=== PATIENT | male | born 1995 | race Caucasian/White ===

== ENCOUNTER 2017-03-29 17:06 | Emergency (ER) | payer OTHER ==
[2017-03-29] MEDS ORDERED: Ondansetron INJ* 2 MG/ML VIAL IV ONE (18:36)
--- NOTE | 2017-03-29 18:37 | UC ---
UC General HPI - HPI Summary HPI Summary: The patient comes in today for: 1. Vomiting: Onset: Palliative/provacative: Quality: Region: Severity: Time: Associated symptoms: Event: He got up at 8-9 AM today. As he was walking to work, he vomited once. Every 30 minutes he had vomiting at work. He tried water and Gatorade and still vomited. The vomitus had no coffee ground material. He only had bile. Diarrhea: none. Urination--only urinated once and it was very yellow. His last vomiting was 2 hours ago. He is nauseated now. * - History of Current Complaint Chief Complaint: UCAbdominalPain Stated Complaint: VOMITING,ACHES Time Seen by Provider: 03/29/17 18:30 - Allergy/Home Medications Allergies/Adverse Reactions: Allergies Allergy/AdvReac Type Severity Reaction Status Date / Time No Known Allergies Allergy Verified 03/29/17 17:32 PMH/Surg Hx/FS Hx/Imm Hx Previously Healthy: Yes Endocrine History Of: Denies: Diabetes, Thyroid Disease, Hyperthyroidism, Hypothyroidism, Dyslipidemia Cardiovascular History Of: Denies: Cardiac Disorders, Hypertension, Pacemaker/ICD, Myocardial Infarction , Congestive Heart Failure, Atrial Fibrillation, Deep Vein Thrombosis, Bleeding Disorders Respiratory History Of: Denies: COPD, Asthma, Bronchitis, Pneumonia, Pulmonary Embolism GI/ History Of: Denies: Gastroesophageal Reflux, Ulcer, Gastrointestinal Bleed, Gall Bladder Disease, Kidney Stones, Diverticulitis, Renal Disease, Urosepsis Neurological History Of: Denies: TIA, CVA, Dementia, Seizures, Migraine Psychological History Of: Denies: Anxiety, Depression, Bipolar Disorder, Schizophrenia, Post Traumatic Stress Disorder Cancer History Of: Denies: Lung Cancer, Colorectal Cancer, Breast Cancer, Prostate Cancer, Cervical Cancer Other History Of: Negative For: HIV, Hepatitis B, Hepatitis C, Anticoagulant Therapy - Surgical History Surgical History: Yes Surgery Procedure, Year, and Place: rhinoplasty at 11 - Family History Known Family History: Positive: Cardiac Disease, Diabetes - Social History Occupation: Employed Full-time Alcohol Use: Weekly Substance Use Type: None Smoking Status (MU): Former Smoker Review of Systems Constitutional: Chills - No temperature taken at home. Skin: Negative Eyes: Negative ENT: Negative Respiratory: Negative Cardiovascular: Negative Gastrointestinal: Abdominal Pain - He states that he has this worse before he vomits. It is an ache 2/10, Vomiting Genitourinary: Negative Motor: Negative Musculoskeletal: Arthralgia All Other Systems Reviewed And Are Negative: Yes Physical Exam Triage Information Reviewed: Yes Appearance: Well-Appearing, No Pain Distress, Well-Nourished Vital Signs: Initial Vital Signs Temp 98.3 F 03/29/17 17:23 Pulse 93 03/29/17 17:23 Resp 18 03/29/17 17:23 BP 154/87 03/29/17 17:23 Pulse Ox 94 03/29/17 17:23 Vital Signs Reviewed: Yes Eyes: Positive: Conjunctiva Clear. Negative: Discharge ENT: Positive: Hearing grossly normal, Other: - Mouth slightly pasty.. Negative : Pharyngeal erythema, Nasal congestion, Nasal drainage, TM bulging, TM dull, TM red, Tonsillar swelling, Tonsillar exudate Dental: Negative: Gross Decay/Caries @, Dental Fracture @ Neck: Positive: Supple, Nontender, No Lymphadenopathy. Negative: Nuchal Rigidity Respiratory: Positive: Chest non-tender, Lungs clear, No respiratory distress, No accessory muscle use. Negative: Crackles, Wheezing Cardiovascular: Positive: RRR, No Murmur Abdomen Description: Positive: No Organomegaly, Soft. Negative: Nontender - Initially, he had diffuse and inconsistent tenderness of the general abdominal exam. Musculoskeletal: Positive: Strength Intact, ROM Intact Neurological: Positive: Alert, Muscle Tone Normal Psychological: Positive: Normal Response To Family, Age Appropriate Behavior, Consolable Skin: Negative: rashes, breakdown Course/Dx - Course Course Of Treatment: Patient had 1000 ml of D5NS and Zofran 4 mg IV. He states that he feels much better and wants to go home. He feels like he now can urinate. - Differential Dx - Multi-Symptom Provider Diagnoses: viral gastroenteritis Discharge - Discharge Plan Condition: Stable Disposition: HOME Patient Education Materials: Gastroenteritis (ED) Referrals: No Primary Care Phys,NOPCP [Primary Care Provider] - 1 Week (Please follow up with your primary care provider next week to see how well you are doing. If you get worse, please be seen sooner. If you don't have a primary care provider use the phone line as listed to help you find one. If you can't get in timely, you can come back to see us.) [facility] [Outside] Additional Instructions: Increase your fluid intake to keep your urine colorless like water.
[2017-03-29] MEDS ORDERED: D5NS 0.9% 1000 ML BAG* 1,000 ML IV SCH (19:00)
[2017-03-29 19:28] VITALS: BP 144/76
== END 2017-03-29 20:20 | disposition home or self-care (01) ==
LOC: UCEAST 17:06
DX: A08.4 Viral intestinal infection, unspecified (principal); Z87.891 Personal history of nicotine dependence
CPT/HCPCS: 96360; 96374; 99202; G0463; J2405